=== PATIENT | female | born 1995 | race Two or more races ===

== ENCOUNTER 2023-12-28 09:11 | Inpatient (IN) | payer MEDICAID ==
[~2023-12-28] VITALS: Ht 188 cm; Wt 65.3 kg
[2023-12-28] MEDS ORDERED: ONDANSETRON HCL/PF 4 MG/2 ML VIAL ONE (09:44)
[2023-12-28] MEDS ORDERED: FAMOTIDINE/PF INJ 20 MG/2 ML VIAL IV ONE ×2 (09:44→21:52)
[2023-12-28] MEDS ORDERED: MAG HYDROX/AL HYDROX/SIMETH 30 ML UDC ONE (09:44)
[2023-12-28] MEDS ORDERED: MORPHINE SULFATE INJ 4 MG/ML DISP.SYRIN ONE ×2 (09:44→10:18)
[2023-12-28] MEDS: IV NS 0.9% 1,000 ML BAG IV ONE (09:49)
[2023-12-28] MEDS: MORPHINE SULFATE INJ 2 MG/ML DISP.SYRIN IV ONE ×2 (09:49→10:20)
[2023-12-28] MEDS: FAMOTIDINE/PF INJ 20 MG/2 ML VIAL IV ONE (09:49)
[2023-12-28] MEDS: MAG HYDROX/AL HYDROX/SIMETH 30 ML UDC PO ONE (09:49)
[2023-12-28] MEDS: ONDANSETRON HCL/PF 4 MG/2 ML VIAL IVP ONE (09:49)
[2023-12-28 10:08] LABS: BASOPHILS % (AUTO) 0.3 % (0.0-2.0); EOSINOPHILS % (AUTO) 0.1 % (0.0-6.0); HEMATOCRIT 40 % (33-45); HEMOGLOBIN 13.3 g/dL (11.5-14.8); LYMPHOCYTES % (AUTO) 6.9 % (20.0-44.0); MEAN CORPUSCULAR HEMOGLOBIN 30 PG (26.0-33.0); MEAN CORPUSCULAR HGB CONC 34 g/dl (31.0-36.0); MEAN CORPUSCULAR VOLUME 89 fL (82-100); MONOCYTES # (AUTO) 0.5 K/uL (0.1-1.30); MONOCYTES % (AUTO) 3.3 % (2.0-12.0); NEUTROPHILS # (AUTO) 13.4 K/uL (1.8-8.9); NEUTROPHILS % (AUTO) 89.4 % (43.0-81.0); PLATELET COUNT (AUTO) 307 K/uL (150-450); RED BLOOD CELL COUNT(AUTO) 4.47 MIL/uL (4.0-5.2); RED CELL DISTRIBUTION WIDTH 14.4 % (11.5-15.0); WHITE BLOOD COUNT (AUTO) 14.9 K/uL (4.3-11.0)
[2023-12-28 10:15] LABS: CALCIUM, SERUM 9.7 mg/dL (8.5-10.1); CREATININE 0.9 mg/dL (0.6-1.3); POTASSIUM 3.6 mmol/L (3.5-5.1)
[2023-12-28 10:19] LABS: APPEARANCE,URINE SLIGHTLY CLOUDY (CLEAR); BILIRUBIN,URINE NEGATIVE (NEGATIVE); BLOOD, URINE NEGATIVE Ery/uL (NEGATIVE); COLOR,URINE YELLOW (YELLOW); KETONES,URINE NEGATIVE (NEGATIVE); LEUKOCYTE ESTERASE ,URINE TRACE (NEGATIVE); NITRITE, URINE NEGATIVE (NEGATIVE); PH,URINE 8.5 (5.0-8.0); PROTEIN,URINE 1+ mg/dl (NEGATIVE); UGLUCOSE NEGATIVE (NEGATIVE); UROBILINOGEN,URINE 0.2 EU/dL (0.2)
[2023-12-28 10:20] LABS: ALBUMIN 3.6 g/dL (3.4-5.0); BILIRUBIN,DIRECT 0.1 mg/dL (0.0-0.2); BILIRUBIN,TOTAL 0.5 mg/dL (0.2-1.0); TOTAL PROTEIN, SERUM 8.2 g/dL (6.4-8.2)
[2023-12-28 10:23] LABS: PREGNANCY TEST URINE QUAL NEGATIVE (NEGATIVE)
[2023-12-28 10:30] LABS: RBC,URINE 0-2 /HPF (0-2)
[2023-12-28 10:32] LABS: ADD URINE CULTURE NO; BACTERIA,URINE None seen /HPF (None Seen)
[2023-12-28 10:33] LABS: FINE GRANULAR CASTS,URINE Few /LPF (None Seen); HYALINE CASTS, URINE Few /LPF (None Seen); TRICHOMONAS,URINE None Seen /HPF (None Seen); URINE AMORPHOUS PHOSPHATES Few /HPF (None Seen); YEAST,URINE None Seen /HPF (None Seen)
[2023-12-28 10:34] LABS: MUCUS,URINE Few /LPF (None Seen)
[2023-12-28] MEDS ORDERED: KETOROLAC TROMETHAMINE 15 MG/ML VIAL ONE (11:04)
[2023-12-28] MEDS: KETOROLAC TROMETHAMINE 15 MG/ML VIAL IV ONE (11:08)
[2023-12-28] MEDS ORDERED: PIPERACI/TAZO 3.375GM/D5W 50ML PB IV ONE (11:59)
[2023-12-28] MEDS ORDERED: ZOLPIDEM TARTRATE 5 MG TABLET PO PRN (12:00)
[2023-12-28] MEDS ORDERED: MAGNESIUM HYDROXIDE 30 ML UDC PO PRN (12:00)
[2023-12-28] MEDS ORDERED: Z GUARD REMEDY 4 OZ OINT TP PRN (12:00)
[2023-12-28] MEDS: PIPERACILLIN /TAZOBACTAM 3.375 G in IV D5W 50 ML IV ONE (12:03)
[2023-12-28] MEDS: HYDROMORPHONE 1 MG/1 ML DISP.SYRIN IV PRN (14:51)
[2023-12-28] MEDS: IV NS 0.9% 1,000 ML IV PRN (15:32)
[2023-12-28] MEDS: ONDANSETRON HCL/PF 4 MG/2 ML VIAL IVP PRN (16:09)
[2023-12-28] MEDS: PIPERACILLIN /TAZOBACTAM 3.375 G in IV D5W 50 ML IV SCH (17:21)
[2023-12-28 17:32] VITALS: BP 126/74; TEMP 98.9; O2SAT 99
[2023-12-28 18:43] LABS: INR 0.97 (0.91-1.10); PARTIAL THROMBOPLASTIN TIME 29.5 SEC (24.3-34.3); PROTHROMBIN TIME 10.3 SECS (9.2-11.1)
[2023-12-28] MEDS: ACETAMINOPHEN 325 MG TABLET PO PRN (19:49)
[2023-12-28] MEDS ORDERED: BUPIVACAINE 0.5 % PF 150 MG/30 ML VIAL ONE (21:33)
[2023-12-28] MEDS ORDERED: BACITRACIN ZINC OINT (15 GM) 15 GM TUBE TP ONE (21:33)
[2023-12-28] MEDS ORDERED: LIDOCAINE 1%-EPI 1:100,000 20 ML VIAL ONE (21:33)
[2023-12-28] MEDS ORDERED: HYDROMORPHONE INJ 2 MG/ML DISP.SYRIN ONE (21:51)
[2023-12-28] MEDS ORDERED: FENTANYL PF 100MCG/2ML AMPUL ONE (21:51)
[2023-12-28] MEDS ORDERED: ROCURONIUM BROMIDE 50 MG/5 ML ONE ×2 (21:52)
[2023-12-28] MEDS ORDERED: MIDAZOLAM HCL 2 MG/2ML VIAL ONE (21:52)
[2023-12-29] VITALS: BP 107/64; TEMP 97.9; O2SAT 98
[2023-12-29] MEDS: IV LR 1000 ML 1,000 ML IV ONE (01:15)
[2023-12-29] MEDS ORDERED: GABAPENTIN 100 MG CAPSULE PO SCH (05:00)
[2023-12-29] MEDS ORDERED: ACETAMINOPHEN 325 MG TABLET PO SCH (05:00)
[2023-12-29] MEDS: CELECOXIB 100 MG CAPSULE PO SCH (06:01)
[2023-12-29] MEDS: GABAPENTIN 100 MG CAPSULE PO SCH (06:02)
[2023-12-29] MEDS: ACETAMINOPHEN 325 MG TABLET PO SCH (06:02)
[2023-12-29 07:20] LABS: CALCIUM, SERUM 7.4 mg/dL (8.5-10.1); CREATININE 0.8 mg/dL (0.6-1.3); MAGNESIUM 1.9 mg/dL (1.8-2.4); PHOSPHORUS 2.2 mg/dL (2.5-4.9); POTASSIUM 3.8 mmol/L (3.5-5.1)
[2023-12-29 07:24] LABS: BASOPHILS % (AUTO) 0.2 % (0.0-2.0); HEMATOCRIT 33 % (33-45); LYMPHOCYTES # (AUTO) 0.7 K/uL (0.8-4.8); MEAN CORPUSCULAR HEMOGLOBIN 30 PG (26.0-33.0); MEAN CORPUSCULAR HGB CONC 34 g/dl (31.0-36.0); MEAN CORPUSCULAR VOLUME 91 fL (82-100); MONOCYTES # (AUTO) 0.4 K/uL (0.1-1.30); MONOCYTES % (AUTO) 2.2 % (2.0-12.0); NEUTROPHILS # (AUTO) 16.9 K/uL (1.8-8.9); NEUTROPHILS % (AUTO) 93.6 % (43.0-81.0); PLATELET COUNT (AUTO) 237 K/uL (150-450); RED BLOOD CELL COUNT(AUTO) 3.61 MIL/uL (4.0-5.2); RED CELL DISTRIBUTION WIDTH 14.2 % (11.5-15.0); WHITE BLOOD COUNT (AUTO) 18.1 K/uL (4.3-11.0)
[2023-12-29 08:25] VITALS: BP 90/55; TEMP 97.9; O2SAT 98
[2023-12-29] MEDS ORDERED: Magnesium 1GM/D5W 100ML PREMIX 100 ML IV SCH (11:00)
[2023-12-29] MEDS: Magnesium 1GM/D5W 100ML PREMIX PIGGYBACK IV ONE (12:40)
[2023-12-29] MEDS: K PHOS NEUTRAL 250 MG TABLET PO ONE (12:40)
[2023-12-29] MEDS: PIPERACILLIN /TAZOBACTAM 3.375 G in IV D5W 100 ML IV SCH (13:01)
[2023-12-29 16:00] VITALS: BP 101/59; TEMP 98.4; O2SAT 98
[2023-12-30] VITALS: BP 102/63; TEMP 98.8; O2SAT 95
[2023-12-30 06:46] LABS: BASOPHILS % (AUTO) 0.4 % (0.0-2.0); EOSINOPHILS % (AUTO) 0.3 % (0.0-6.0); HEMATOCRIT 31 % (33-45); HEMOGLOBIN 10.5 g/dL (11.5-14.8); LYMPHOCYTES # (AUTO) 2.4 K/uL (0.8-4.8); LYMPHOCYTES % (AUTO) 25.2 % (20.0-44.0); MEAN CORPUSCULAR HEMOGLOBIN 30 PG (26.0-33.0); MEAN CORPUSCULAR HGB CONC 34 g/dl (31.0-36.0); MEAN CORPUSCULAR VOLUME 90 fL (82-100); MONOCYTES # (AUTO) 0.5 K/uL (0.1-1.30); MONOCYTES % (AUTO) 5.4 % (2.0-12.0); NEUTROPHILS # (AUTO) 6.4 K/uL (1.8-8.9); NEUTROPHILS % (AUTO) 68.7 % (43.0-81.0); PLATELET COUNT (AUTO) 222 K/uL (150-450); RED BLOOD CELL COUNT(AUTO) 3.46 MIL/uL (4.0-5.2); RED CELL DISTRIBUTION WIDTH 14.2 % (11.5-15.0); WHITE BLOOD COUNT (AUTO) 9.4 K/uL (4.3-11.0)
[2023-12-30 06:56] LABS: POTASSIUM 3.5 mmol/L (3.5-5.1)
[2023-12-30 08:00] VITALS: BP 102/60; TEMP 99; O2SAT 98
[2023-12-30 10:21] VITALS: O2SAT 98
[2023-12-30] MEDS: MAG HYDROX/AL HYDROX/SIMETH 30 ML UDC PO PRN (13:43)
[2023-12-30 16:00] VITALS: BP 102/60; TEMP 99; O2SAT 98
== END 2023-12-30 18:52 | disposition home or self-care (01) | DRG 233 ==
LOC: ER 09:11 → MEDSG1 11:56
PROVIDERS: ADMIT Nurse Practitioner Acute Care
PROC: 0DTJ4ZZ Resection of Appendix, Percutaneous Endoscopic Approach (ICD-10-PCS; principal; 2023-12-28)
DX: K35.33 Acute appendicitis with perforation, localized peritonitis, and gangrene, with abscess (principal); K29.70 Gastritis, unspecified, without bleeding; R19.09 Other intra-abdominal and pelvic swelling, mass and lump
CPT/HCPCS: 36415; 76856-TC; 80048-TC; 80076-TC; 81001; 83605-TC; 83690-TC; 83735-TC; 84100-TC; 84703-TC; 85025-TC; 85610-TC; 85730-TC; 86850-TC; 87040-TC; 94799-TC; A4223; G0378; J0330; J0690; J1100; J1170; J1885; J2250; J2270; J2405; J2543; J2704; J2765; J3010; J3475; J3490; J7030; J7060; J7120